=== PATIENT | male | born 1990 | race Caucasian/White ===

== ENCOUNTER 2020-12-12 00:39 | Emergency (ER) | payer MEDICAID ==
[2020-12-12 01:03] VITALS: BP 129/72; PULSE 97
[2020-12-12] MEDS ORDERED: cefTRIAXone 1 GM, Lidocaine 1% 2.1 ML IM ONE ×2 (01:38)
--- NOTE | 2020-12-12 02:01 | EDM.PDOC ---
ED HPI GENERAL MEDICAL PROBLEM - General Chief Complaint: General Stated Complaint: TESTICULAR PAIN Time Seen by Provider: 12/12/20 01:25 Source of Information: Reports: Patient History Limitations: Reports: No Limitations - History of Present Illness INITIAL COMMENTS - FREE TEXT/NARRATIVE: 30-year-old male who has developed right testicular swelling and pain over the past 48 hours. It started subtle 2 nights ago, but when he woke up in the morning it was worse. He starting to have trouble walking and he has to sit awkwardly because of the discomfort. No fevers or chills. He does have a new girlfriend and is wondering if he has some type of STD. He denies any penile discharge or dysuria. Onset: Gradual Duration: Day(s): (2 days of symptoms) Location: Reports: Other (Right testicle) Associated Symptoms: Reports: Other (No abdominal pain). Denies: Fever/Chills, Nausea/Vomiting Groin Pain Score (Numeric/FACES): 10 - Related Data Allergies Allergy/AdvReac Type Severity Reaction Status Date / Time Sulfa (Sulfonamide Allergy Cannot Verified 12/12/20 01:04 Antibiotics) Remember Home Meds: Home Meds NK [No Known Home Meds] 03/28/15 [History] Past Medical History - Past Health History Medical/Surgical History: Denies Medical/Surgical History Musculoskeletal History: Reports: Fracture Social & Family History - Family History Family Medical History: No Pertinent Family History - Tobacco Use Tobacco Use Status *Q: Current Every Day Tobacco User Years of Tobacco use: 10 Packs/Tins Daily: 0.5 - Caffeine Use Caffeine Use: Reports: Coffee, Tea - Recreational Drug Use Recreational Drug Use: No ED ROS GENERAL - Review of Systems Review Of Systems: See Below Constitutional: Denies: Fever, Chills HEENT: Reports: No Symptoms Respiratory: Reports: No Symptoms Cardiovascular: Reports: No Symptoms GI/Abdominal: Reports: No Symptoms : Denies: Dysuria, Frequency, Urgency Skin: Reports: No Symptoms Neurological: Reports: No Symptoms ED EXAM, GENERAL - Physical Exam Exam: See Below Exam Limited By: No Limitations General Appearance: Alert, Mild Distress (Looks fairly uncomfortable, sitting awkwardly) Head: Atraumatic Respiratory/Chest: No Respiratory Distress GI/Abdominal: Soft, Non-Tender (Male) Exam: Testicular Tenderness (R) (Patient has fairly significant right testicular swelling and tenderness, no hernia and no inguinal canal pain. Left side is normal.) Skin Exam: Warm, Dry Course - Vital Signs Last Recorded V/S: Last Vital Signs Temp 96.1 F L 12/12/20 01:01 Pulse 97 12/12/20 01:01 Resp 18 12/12/20 01:01 BP 129/72 12/12/20 01:01 Pulse Ox 97 12/12/20 01:01 - Orders/Labs/Meds Meds: Medications Discontinued Medications Generic Name Dose Route Start Last Admin Trade Name Helderq PRN Reason Stop Dose Admin Ceftriaxone Sodium 1 gm/ 0 gm 12/12/20 01:38 12/12/20 01:56 Lidocaine HCl 2.1 ml IM 12/12/20 01:39 1 inj ONETIME ONE Administration - Re-Assessments/Exams Free Text/Narrative Re-Assessment/Exam: 12/12/20 01:59 Explained to the patient that this is likely epididymitis and will respond to antibiotics but an ultrasound should be done to rule out torsion. Patient wanted antibiotics I did not want to wait for an ultrasound. I think with the gradual onset of symptoms epididymitis is likely enough for a course of antibiotics is reasonable but I again encouraged him to stay for an ultrasound but he refused. He was given 1 g of IM Rocephin, started on 100 mg of twice daily doxycycline and 500 mg of 3 times daily cephalexin both to be taken for at least 7 days. He will return in the next 12 to 24 hours if not improving on the antibiotics. He was also given 6 doses of hydrocodone for extra pain control and encouraged to take an anti-inflammatory for pain. Departure - Departure Time of Disposition: 02:14 Disposition: Home, Self-Care 01 Clinical Impression: Epididymitis, right - Discharge Information Instructions: Epididymitis Referrals: PCP,None [Primary Care Provider] - Forms: ED Department Discharge Care Plan Goals: Take both antibiotics as prescribed for at least a week, and anti-inflammatory such as ibuprofen or naproxen will be helpful and add stronger pain medication if needed. Consider returning for an ultrasound if not improving in the first 24 hours. Sepsis Event Note (ED) - Evaluation Sepsis Screening Result: No Definite Risk - Focused Exam Vital Signs: Vital Signs Temp Pulse Resp BP Pulse Ox 12/12/20 01:01 96.1 F L 97 18 129/72 97
== END 2020-12-12 02:15 | disposition home or self-care (01) ==
LOC: JP.ED 00:39
DX: N45.1 Epididymitis (principal); Z88.2 Allergy status to sulfonamides; Z72.0 Tobacco use
CPT/HCPCS: 96372; 99283; J0696

== ENCOUNTER 2020-12-13 16:33 | Emergency (ER) | payer MEDICAID ==
[2020-12-13 16:53] VITALS: BP 136/79; PULSE 97
--- NOTE | 2020-12-13 17:14 | EDM.PDOC ---
ED HPI GENERAL MEDICAL PROBLEM - General Chief Complaint: General Stated Complaint: TESTICULAR PAIN Time Seen by Provider: 12/13/20 16:55 Source of Information: Reports: Patient, Old Records, RN History Limitations: Reports: No Limitations - History of Present Illness INITIAL COMMENTS - FREE TEXT/NARRATIVE: 30 yo male was seen yesterday by Dr. Sheikh for a tender and swollen R testicle. Patient was offered US and declined. No testing was done, but he was given Rocephin IM, cephalexin, doxycycline and Mcloud prescriptions. Patient continues on these and says he is about 25 % worse today. He is taking he meds as prescribed. He is out of his Mcloud which he says didn't help that much. Onset: Gradual Duration: Day(s):, Getting Worse Location: Reports: Pelvis Quality: Reports: Ache Severity: Moderate Improves with: Reports: Medication Worsens with: Reports: Other (bumping area) Context: Reports: Other (See HPI) Associated Symptoms: Reports: No Other Symptoms. Denies: Fever/Chills Treatments HEAT READER: Reports: Other (see below) (antibiotics) - Related Data Allergies Allergy/AdvReac Type Severity Reaction Status Date / Time Sulfa (Sulfonamide Allergy Cannot Verified 12/13/20 16:51 Antibiotics) Remember Home Meds: Home Meds Doxycycline [Doxycycline Hyclate] 100 mg PO BID 12/13/20 [History] Hydrocodone/Acetaminophen [Hydrocodon-Acetaminophen 5-325] 1 tab PO Q8H PRN 12/13/20 [History] cephALEXin [Cephalexin] 500 mg PO TID 12/13/20 [History] Past Medical History - Past Health History Medical/Surgical History: Denies Medical/Surgical History Genitourinary History: Reports: None Musculoskeletal History: Reports: Fracture - Past Surgical History Musculoskeletal Surgical History: Reports: Other (See Below) Other Musculoskeletal Surgeries/Procedures:: left arm, right hand Dermatological Surgical History: Reports: None Social & Family History - Family History Family Medical History: No Pertinent Family History - Tobacco Use Tobacco Use Status *Q: Current Every Day Tobacco User Years of Tobacco use: 10 Packs/Tins Daily: 0.5 Used Tobacco, but Quit: No Second Hand Smoke Exposure: No - Caffeine Use Caffeine Use: Reports: Coffee, Tea - Recreational Drug Use Recreational Drug Use: No ED ROS GENERAL - Review of Systems Review Of Systems: See Below Constitutional: Reports: No Symptoms. Denies: Fever, Chills GI/Abdominal: Denies: Nausea, Vomiting Skin: Reports: Erythema (over R hemiscrotum) Neurological: Reports: No Symptoms ED EXAM, GENERAL - Physical Exam Exam: See Below Exam Limited By: No Limitations General Appearance: Alert, WD/WN, No Apparent Distress (Male) Exam: No Hernia, Scrotal Swelling, Scrotum Tenderness (R), Testicular Tenderness (R), Other (R testicle not retracted, is considerably bigger than the L testicle. ) Neurological: Alert, Oriented, CN II-XII Intact, Normal Cognition, No Nael r/Sensory Deficits Psychiatric: Normal Affect, Normal Mood Skin Exam: Warm, Dry, Intact, No Rash, Erythema (R hemiscrotum) Course - Vital Signs Last Recorded V/S: Last Vital Signs Temp 36.8 C 12/13/20 16:54 Pulse 97 12/13/20 16:54 Resp 18 12/13/20 16:54 BP 136/79 12/13/20 16:54 Pulse Ox 96 12/13/20 16:54 Departure - Departure Time of Disposition: 17:15 Disposition: Home, Self-Care 01 Condition: Fair Clinical Impression: Orchitis - Discharge Information *PRESCRIPTION DRUG MONITORING PROGRAM REVIEWED*: No *COPY OF PRESCRIPTION DRUG MONITORING REPORT IN PATIENT MEGAN: No Referrals: PCP,None [Primary Care Provider] - Additional Instructions: Continue your current antibiotics. Take ibuprofen 600 mg every 6 hrs for pain relief. Wear briefs to support your testicle. Add acetaminophen OR Mcloud 7.5/325 for added pain relief if needed. Get established with a primary care provider in your area. Call [facility] tomorrow morning, try at 8 am until 9 am. [phone] if the number. Tell them you were in our ER and would like to be seen 12/14/20. Take your records along to that appt. Sepsis Event Note (ED) - Evaluation Sepsis Screening Result: No Definite Risk - Focused Exam Vital Signs: Vital Signs Temp Pulse Resp BP Pulse Ox 12/13/20 16:54 36.8 C 97 18 136/79 96 12/13/20 16:51 36.8 C 97 18 136/79 96
== END 2020-12-13 17:28 | disposition home or self-care (01) ==
LOC: JP.ED 16:33
DX: N45.2 Orchitis (principal); Z88.2 Allergy status to sulfonamides
CPT/HCPCS: 99283

== ENCOUNTER 2021-06-30 19:05 | Emergency (ER) | payer MEDICAID ==
[2021-06-30 19:58] VITALS: BP 118/79; PULSE 68
--- NOTE | 2021-06-30 20:16 | EDM.PDOC ---
ED HPI GENERAL MEDICAL PROBLEM - General Chief Complaint: Abdominal Pain Stated Complaint: COVID POSITIVE HEAD HURT CHILLS Time Seen by Provider: 06/30/21 20:16 Source of Information: Reports: Patient, RN Notes Reviewed History Limitations: Reports: No Limitations - History of Present Illness INITIAL COMMENTS - FREE TEXT/NARRATIVE: Paul presents today for complaints of being positive for COVID, generalized body aches and pain, nausea and vomiting for 7 days. He denies use of any OTC medications or treatments for his complaints. He denies fever, chills, diarrhea, constipation, headache, congestion, cough, palpitations, chest pain or shortness of breath. Unvaccinated for COVID-19. Abdomen Pain Score (Numeric/FACES): 8 - Related Data Allergies Allergy/AdvReac Type Severity Reaction Status Date / Time Sulfa (Sulfonamide Allergy Cannot Verified 06/30/21 20:05 Antibiotics) Remember Home Meds: Home Meds NK [No Known Home Meds] 06/30/21 [History] Past Medical History - Past Health History Medical/Surgical History: Denies Medical/Surgical History Gastrointestinal History: Reports: GERD Genitourinary History: Reports: None Musculoskeletal History: Reports: Fracture Psychiatric History: Reports: Addiction - Infectious Disease History Infectious Disease History: Reports: Chicken Pox - Past Surgical History Musculoskeletal Surgical History: Reports: Other (See Below) Other Musculoskeletal Surgeries/Procedures:: left arm, right hand Dermatological Surgical History: Reports: None Social & Family History - Family History Family Medical History: No Pertinent Family History - Tobacco Use Tobacco Use Status *Q: Former Tobacco User Used Tobacco, but Quit: Yes Month/Year Tobacco Last Used: 04/06 - Caffeine Use Caffeine Use: Reports: None - Recreational Drug Use Recreational Drug Use: Yes Recreational Drug Type: Reports: Marijuana/Hashish, Methamphetamine Recreational Drug Use Frequency: Not Used In Over 2 Months ED ROS GENERAL - Review of Systems Review Of Systems: See Below Constitutional: Reports: Malaise, Decreased Appetite. Denies: Fever, Chills HEENT: Reports: No Symptoms Respiratory: Reports: No Symptoms Cardiovascular: Reports: No Symptoms Endocrine: Reports: No Symptoms GI/Abdominal: Reports: Decreased Appetite, Nausea, Vomiting. Denies: Abdominal Pain, Anorexia, Black Stool, Bloody Stool, Constipation, Diarrhea, Difficulty Swallowing, Distension, Flatus, Hematemesis, Hematochezia, Melena : Reports: No Symptoms Musculoskeletal: Reports: Other (generalized body aches) Skin: Reports: No Symptoms Neurological: Reports: No Symptoms Psychiatric: Reports: No Symptoms Hematologic/Lymphatic: Reports: No Symptoms Immunologic: Reports: No Symptoms ED EXAM, GENERAL - Physical Exam Exam: See Below Exam Limited By: No Limitations General Appearance: Alert, WD/WN, No Apparent Distress Eye Exam: Bilateral Eye: Normal Inspection, PERRL Ears: Normal External Exam, Normal Canal, Hearing Grossly Normal, Normal TMs Nose: Normal Inspection, Normal Mucosa, No Blood Throat/Mouth: Normal Inspection, Normal Lips, Normal Teeth (dental caries noted), Normal Gums, Normal Oropharynx, Normal Voice, No Airway Compromise Head: Atraumatic, Normocephalic Neck: Normal Inspection, Supple, Non-Tender, Full Range of Motion. No: Lymphadenopathy (R), Lymphadenopathy (L) Respiratory/Chest: No Respiratory Distress, Lungs Clear, Normal Breath Sounds, No Accessory Muscle Use, Chest Non-Tender. No: Crackles, Rales, Rhonchi, Wheezing, Stridor, Accessory Muscle Use, Retractions, Splinting Cardiovascular: Normal Peripheral Pulses, Regular Rate, Rhythm, No Edema, No Gallop, No Murmur, No Rub Peripheral Pulses: 4+: Radial (L), Radial (R), Dorsalis Pedis (L), Dorsalis Pedis (R) GI/Abdominal: Normal Bowel Sounds, Soft, Non-Tender, No Organomegaly, No Distention, No Mass. No: Guarding, Rigid, Rebound, Tender, Abnormal Bowel Sounds Back Exam: Normal Inspection, Full Range of Motion. No: CVA Tenderness (R), CVA Tenderness (L) Extremities: Normal Inspection, Normal Range of Motion, Non-Tender, No Pedal Edema, Normal Capillary Refill Neurological: Alert, Oriented, Normal Cognition, Normal Gait, Normal Reflexes, Slow to Respond Psychiatric: Normal Affect, Normal Mood Skin Exam: Warm, Dry, Intact, Normal Color, No Rash Lymphatic: No Adenopathy Course - Vital Signs Last Recorded V/S: Last Vital Signs Temp 36.6 C 06/30/21 20:03 Pulse 68 06/30/21 20:03 Resp 16 06/30/21 20:03 BP 118/79 06/30/21 20:03 Pulse Ox 100 06/30/21 20:03 - Orders/Labs/Meds Meds: Medications Discontinued Medications Generic Name Dose Route Start Last Admin Trade Name Irina PRN Reason Stop Dose Admin Ondansetron HCl 4 mg 06/30/21 20:30 06/30/21 20:50 Ondansetron 4 Mg Tab.Dis PO 06/30/21 20:31 4 mg ONETIME ONE Administration - Re-Assessments/Exams Free Text/Narrative Re-Assessment/Exam: Discussed care of COVID-19 and symptoms with patient. Education provided on diet, use of ondansetron, hydration and management of pain. Patient verbalized understanding. All his questions were answered. He is in agreement with plan. Departure - Departure Time of Disposition: 20:35 Disposition: Home, Self-Care 01 Condition: Good Clinical Impression: COVID-19, Nausea - Discharge Information Instructions: COVID-19, Nausea, Adult, [id number] Referrals: PCP,None [Primary Care Provider] - Forms: ED Department Discharge Additional Instructions: You have been evaluated and treated for COVID-19 nausea. Take tylenol 1000mg by mouth three times a day as needed for pain. Take ibuprofen 800 by mouth three times a day as needed for pain. Take ondansetron 4mg by mouth every 8 hours as needed for nausea. Drink fluids to stay hydrated. Eat protein to help your body heal. Follow up with primary as needed in 10 days. Return for worsening, shortness of breath or difficulty breathing. Sepsis Event Note (ED) - Focused Exam Vital Signs: Vital Signs Temp Pulse Resp BP Pulse Ox 06/30/21 20:03 36.6 C 68 16 118/79 100 06/30/21 19:57 36.6 C 68 16 118/79 100 - Assessment/Plan Assessment:: COVID-19, Nausea Plan: Patient evaluated and treated for COVID-19 nausea. Take tylenol 1000mg by mouth three times a day as needed for pain. Take ibuprofen 800 by mouth three times a day as needed for pain. Take ondansetron 4mg by mouth every 8 hours as needed for nausea. Drink fluids to stay hydrated. Eat protein to help body heal. Follow up with primary as needed in 10 days. Return for worsening, shortness of breath or difficulty breathing.
[2021-06-30] MEDS ORDERED: Ondansetron 4 MG Tab.DIS PO ONE (20:30)
== END 2021-06-30 20:51 | disposition home or self-care (01) ==
LOC: JP.ED 19:05
DX: U07.1 COVID-19 (principal); R11.2 Nausea with vomiting, unspecified; Z88.2 Allergy status to sulfonamides; Z87.891 Personal history of nicotine dependence
CPT/HCPCS: 99283; A9270

== ENCOUNTER 2021-11-02 00:48 | Emergency (ER) | payer MEDICAID ==
[2021-11-02] MEDS ORDERED: Sodium Chloride 0.9% 10 ML Syringe FLUSH PRN ×2 (01:14→02:05)
[2021-11-02] MEDS ORDERED: Ondansetron 4 MG/2 ML SDV IVPUSH ONE (01:15)
[2021-11-02] MEDS ORDERED: Ketorolac 30 MG/ML SDV IVPUSH ONE (01:15)
[2021-11-02 01:29] VITALS: BP 128/89; PULSE 108
[2021-11-02] MEDS ORDERED: Iopamidol 612 MG/ML 100 ML Bottle IV PRN (02:05)
[2021-11-02] MEDS ORDERED: Sodium Chloride 0.9% 75 ML IV SCH (02:15)
== END 2021-11-02 04:07 | disposition home or self-care (01) ==
LOC: JP.ED 00:48
DX: R10.11 Right upper quadrant pain (principal); Z88.2 Allergy status to sulfonamides
CPT/HCPCS: 36415; 74177; 80053; 80307; 83605; 83690; 85025; 86140; 96374; 96375; 99283; 99284-25; J1885; J2405; J3490; Q9967

== ENCOUNTER 2022-02-23 20:55 | Emergency (ER) | payer OTHER, MEDICAID ==
[2022-02-23] MEDS ORDERED: Sodium Chloride 0.9% 10 ML Syringe FLUSH PRN (21:10)
[2022-02-23] MEDS ORDERED: Ketorolac 30 MG/ML SDV IVPUSH ONE (21:10)
[2022-02-23] MEDS ORDERED: Ondansetron 4 MG/2 ML SDV IVPUSH ONE (21:10)
[2022-02-23] MEDS ORDERED: Sodium Chloride 0.9% 75 ML IV SCH (21:15)
[2022-02-23] MEDS ORDERED: Iopamidol 612 MG/ML 100 ML Bottle IV SCH (21:15)
[2022-02-23] MEDS ORDERED: HYDROmorphone 1 MG/ML Syringe IVPUSH ONE ×2 (21:43→22:38)
[2022-02-23 21:57] LABS: ESTIMATED GFR 93 mL/min (>60)
[2022-02-23] MEDS ORDERED: Sodium Chloride 0.9% 1,000 ML IV SCH (22:00)
[2022-02-23] MEDS ORDERED: Pantoprazole 40 MG Vial IVPUSH SCH (22:00)
[2022-02-23] MEDS ORDERED: Piperacillin/Tazobactam 3.375 GM in Sodium Chloride 0.9% 50 ML IV SCH (22:00)
[2022-02-23] MEDS ORDERED: Lidocaine 2% Viscous Solution 15 ML UD ONE (22:13)
[2022-02-23] MEDS ORDERED: Lidocaine 2% Viscous Solution 15 ML UD PO ONE (22:13)
[2022-02-23 22:15] VITALS: PULSE 61
[2022-02-23 22:55] VITALS: BP 118/84
== END 2022-02-23 23:03 ==
LOC: JP.ED 20:55
DX: K26.9 Duodenal ulcer, unspecified as acute or chronic, without hemorrhage or perforation (principal); K65.0 Generalized (acute) peritonitis; K66.8 Other specified disorders of peritoneum; Z88.2 Allergy status to sulfonamides; Z20.822 Contact with and (suspected) exposure to COVID-19
CPT/HCPCS: 36415; 43752; 74018; 74177; 80053; 83605; 83690; 85025; 87635; 96365; 96375; 96376; 99285; A9270; C9113; J1170; J1885; J2405; J2543; J3490; J7030; Q9967; U0002